=== PATIENT | male | born 1970 | race Hispanic/Latino ===

== ENCOUNTER → 2024-05-04 | Outpatient (CLI) | payer OTHER ==
--- NOTE | 2024-05-04 11:58 | HMCIMG ---
US ABDOMINAL COMPLETE REASON: thrombocytopenia unspecified COMPARISON: None FINDINGS: There is inhomogeneous liver parenchyma which can be a reflection of hepatocellular disease. There are no focal mass lesions. The liver is not enlarged.There is a normal-appearing gallbladder. Common duct appears normal at 3 mm. There is a 1.4 cm right renal cyst. Kidneys appear otherwise normal in size and appearance. There is no evidence of mass, stone or hydronephrosis. There is splenomegaly, the spleen measures 5.5 x 6.1 x 15.3 cm. Aorta and inferior vena cava appear unremarkable. The pancreas is obscured by overlying bowel gas. IMPRESSION: 1. Splenomegaly. 2. Mildly inhomogeneous liver parenchyma which can be due to hepatocellular disease, there are no focal liver lesions. 3. Otherwise unremarkable exam although the pancreas was not well seen.
== END | disposition home or self-care (01) ==
LOC: RAH 07:47
PROVIDERS: ATTEND Internal Medicine Medical Oncology
DX: R16.1 Splenomegaly, not elsewhere classified (principal); N28.1 Cyst of kidney, acquired; D69.6 Thrombocytopenia, unspecified; K76.89 Other specified diseases of liver
CPT/HCPCS: 76700

== ENCOUNTER → 2024-09-15 | Outpatient (CLI) | payer OTHER ==
--- NOTE | 2024-09-15 11:57 | HMCIMG ---
CT ABDOMEN/PELVIS W/O CONTRAST HISTORY: Liver cirrhosis COMPARISON: None TECHNIQUE: Multiple sequential axial images of the abdomen and pelvis were obtained from the dome of the diaphragm through symphysis pubis. Patient was not given contrast through intravenous route. Oral contrast was given. FINDINGS: No pleural effusion is seen bilaterally. There is no evidence of parenchymal disease or pulmonary nodule of the visualized lower lungs. Degenerative changes of the thoracolumbar spine are present. The heart is not enlarged. Portal venous TIPS shunt is seen. Liver measures 17 cm. Spleen is enlarged in transverse dimension. No bowel obstruction is seen. There is diverticulosis. The liver, spleen, adrenal glands and pancreas are unremarkable. There is no evidence of hydronephrosis bilaterally. No evidence of renal stone is seen. Fecal material is seen in the colon. There are normal size retroperitoneal and mesenteric lymph nodes. No ascites is seen. Atherosclerotic changes are present. Pelvic sidewalls are symmetric bilaterally. Bladder is moderately distended. IMPRESSION: 1. . Diverticulosis. Cirrhotic liver with enlarged spleen and abdominal varices. CT was performed with one or more following dose reduction techniques: automated exposure control, adjustment of the mA and kv according to patient's size, or use of a iterative reconstruction technique.
== END | disposition home or self-care (01) ==
LOC: RAH 08:57
PROVIDERS: ATTEND Surgery
DX: K42.9 Umbilical hernia without obstruction or gangrene (principal); K74.60 Unspecified cirrhosis of liver; K57.90 Diverticulosis of intestine, part unspecified, without perforation or abscess without bleeding; N32.89 Other specified disorders of bladder; R16.1 Splenomegaly, not elsewhere classified; R19.5 Other fecal abnormalities; M47.815 Spondylosis without myelopathy or radiculopathy, thoracolumbar region; I70.90 Unspecified atherosclerosis
CPT/HCPCS: 74176